=== PATIENT | male | born 1935 | race Caucasian/White ===

== ENCOUNTER 2018-08-10 09:36 | Outpatient (CLI) | payer MEDICARE | END 2018-08-10 23:59 | disposition home or self-care (01) | LOC: CFH 09:36 | PROVIDERS: ATTEND Internal Medicine Cardiovascular Disease | DX: I08.8 Other rheumatic multiple valve diseases (principal); E78.5 Hyperlipidemia, unspecified; R00.8 Other abnormalities of heart beat | CPT/HCPCS: 93306 ==

== ENCOUNTER 2019-05-26 11:08 | Emergency (ER) | payer MEDICARE ==
[~2019-05-26] VITALS: Ht 172.7 cm; Wt 76.2 kg
[2019-05-26 13:11] VITALS: BP 151/67
--- NOTE | 2019-05-26 13:19 | NUR ---
NURSING CENTER TUTOR: PT TO ROOM FROM ERIKA MIKE
--- NOTE | 2019-05-26 13:48 | NUR ---
LAB AT BEDSIDE. US AT BEDSIDE.
[2019-05-26 14:05] LABS: ALBUMIN 3.5 g/dL (3.4-5.0); ANION GAP 5 mmol/L (5-15); CALCIUM 8.7 mg/dL (8.5-10.1); CHLORIDE 100 mmol/L (98-107); CREATININE 0.97 mg/dL (0.7-1.3)
[2019-05-26 14:15] LABS: BASOPHILS # (AUTO) 0.04 x10^3/uL (0-0.1); BASOPHILS % (AUTO) 1 % (0-1); EOSINOPHILS % (AUTO) 4 % (1-7); LYMPHOCYTES # (AUTO) 1.67 x10^3/uL (1-3.4); LYMPHOCYTES % (AUTO) 30 % (22-44); MD NO; MEAN CORPUSCULAR HEMOGLOBIN 31.3 pg (27.5-34.5); MEAN CORPUSCULAR HGB CONC 33.2 g/dL (33.2-36.2); MEAN CORPUSCULAR VOLUME 94.3 fL (81-97); MEAN PLATELET VOLUME 8.4 fL (7.4-10.4); MONOCYTES # (AUTO) 0.54 x10^3/uL (0.2-0.8); MONOCYTES % (AUTO) 10 % (2-9); NEUTROPHILS # (AUTO) 3.22 x10^3/uL (1.8-6.8); NEUTROPHILS % (AUTO) 57 % (42-75); PLATELET COUNT 310 x10^3/uL (130-400); RED BLOOD COUNT 3.91 x10^6/uL (4.38-5.82); RED CELL DISTRIBUTION WIDTH 14.1 % (9.4-14.8)
--- NOTE | 2019-05-26 14:18 | NUR ---
ALL RESULTS ARE BACK AT THIS TIME. CHART UP FOR RECHECK.
--- NOTE | 2019-05-26 14:50 | NUR ---
MD AT BEDSIDE TO UPDATE PT ON POC.
== END 2019-05-26 15:07 | disposition home or self-care (01) ==
LOC: ED 14:18
DX: K40.91 Unilateral inguinal hernia, without obstruction or gangrene, recurrent (principal)
CPT/HCPCS: 36415; 76857; 80048; 82040; 83605; 85025; 99284

== ENCOUNTER → 2019-07-01 | Outpatient (CLI) | payer MEDICARE ==
[~2019-07-01] MED LIST: DOXA4TAB3 PO; FINA5TAB4 PO; ROSU5TAB PO
== END | disposition home or self-care (01) ==
LOC: STAR 10:38
PROVIDERS: ATTEND Surgery
DX: Z01.818 Encounter for other preprocedural examination (principal); K40.90 Unilateral inguinal hernia, without obstruction or gangrene, not specified as recurrent
CPT/HCPCS: 93005

== ENCOUNTER → 2019-10-06 | Outpatient (CLI) | payer MEDICARE ==
[~2019-10-06] MED LIST changes: +AMLO-150 PO; +IRON PO
== END | disposition home or self-care (01) ==
LOC: STAR 14:40
PROVIDERS: ATTEND Student in an Organized Health Care Education/Training Program
DX: Z01.818 Encounter for other preprocedural examination (principal)
CPT/HCPCS: 93005

== ENCOUNTER 2019-10-13 15:47 | Inpatient (IN) | payer MEDICARE ==
[~2019-10-13] VITALS: Ht 172.7 cm; Wt 70.6 kg
[2019-10-13] MEDS ORDERED: OXYC5TAB2 PO (16:12)
--- NOTE | 2019-10-13 16:16 | NUR ---
THIS IS AN 83 YO M W/ C/O N/V SINCE YESTERDAY. PT DENIES ABD PAIN/D/C. PT REPORTS HE WAS SEEN HERE YESTERDAY MORNING FOR INGUINAL HERNIA REPAIR. STARTED ON [place] WHICH HE HAS NOT TAKEN BEFORE. PT STATES HE HAS NOT BEEN ABLE TO HOLD ANY FOOD OR WATER DOWN. PT REPORTS EMESIS IS BLACK. PT RESTING ON GURNEY W/ CALL LIGHT IN REACH, VSS, NADN. FAMILY AT BEDSIDE. AWAITING ED EVAL.
[2019-10-13] MEDS ORDERED: PANTOPRAZOLE 80 MG in SODIUM CHLORIDE 0.9% 50 ML IVPB ONE (16:40)
--- NOTE | 2019-10-13 16:54 | NUR ---
PIV STARTED, LABS DRAWN.
[2019-10-13] MEDS ORDERED: SODIUM CHLORIDE FLUSH 10ML SYR IVF ONE (17:00)
[2019-10-13 17:07] LABS: BASOPHILS # (AUTO) 0.02 x10^3/uL (0-0.1); BASOPHILS % (AUTO) 0 % (0-1); EOSINOPHILS # (AUTO) 0.05 x10^3/uL (0-0.4); EOSINOPHILS % (AUTO) 1 % (1-7); LYMPHOCYTES # (AUTO) 1.01 x10^3/uL (1-3.4); LYMPHOCYTES % (AUTO) 10 % (22-44); MD NO; MEAN CORPUSCULAR HEMOGLOBIN 31.8 pg (27.5-34.5); MEAN CORPUSCULAR HGB CONC 33.7 g/dL (33.2-36.2); MEAN CORPUSCULAR VOLUME 94.4 fL (81-97); MEAN PLATELET VOLUME 7.9 fL (7.4-10.4); MONOCYTES # (AUTO) 0.64 x10^3/uL (0.2-0.8); MONOCYTES % (AUTO) 6 % (2-9); NEUTROPHILS # (AUTO) 8.82 x10^3/uL (1.8-6.8); NEUTROPHILS % (AUTO) 84 % (42-75); PLATELET COUNT 319 x10^3/uL (130-400); RED BLOOD COUNT 3.59 x10^6/uL (4.38-5.82); RED CELL DISTRIBUTION WIDTH 13.4 % (9.4-14.8)
[2019-10-13 17:13] LABS: INTERNATIONAL NORMALIZED RATIO 1.01 (0.93-1.1); PROTHROMBIN TIME 10.7 Seconds (9.6-11.5)
[2019-10-13 17:15] LABS: ALANINE AMINOTRANSFERASE 21 U/L (12-78); ALBUMIN 3.2 g/dL (3.4-5.0); ANION GAP 9 mmol/L (5-15); CALCIUM 8.8 mg/dL (8.5-10.1); CHLORIDE 89 mmol/L (98-107)
[2019-10-13 17:17] LABS: ALKALINE PHOSPHATASE 58 U/L (45-117); BILIRUBIN,TOTAL 0.8 mg/dL (0.2-1.0); CREATININE 1.04 mg/dL (0.7-1.3); TOTAL PROTEIN 7.5 g/dL (6.4-8.2)
--- NOTE | 2019-10-13 17:34 | NUR ---
PT RESTING ON [employer] W/ CALL LIGHT IN REACH, VSS, NADN. AWAITING RESULTS.
--- NOTE | 2019-10-13 17:34 | NUR ---
MED REC DONE.
--- NOTE | 2019-10-13 18:19 | NUR ---
IN ROOM AT BEDSIDE FOR RECHECK.
--- NOTE | 2019-10-13 18:32 | NUR ---
PT RESTING ON GURNEY W/ CALL LIGHT IN REACH. RESP EVEN AND UNLABORED, NADN. AWAITING ADMIT.
--- NOTE | 2019-10-13 18:57 | NUR ---
REPORT FROM GERARD ASSUMING CARE OF PT AT THIS TIME
[2019-10-13] MEDS ORDERED: PANTOPRAZOLE 80 MG in SODIUM CHLORIDE 0.9% 100 ML IV ONE (19:00)
--- NOTE | 2019-10-13 19:52 | NUR ---
PT RESTING ON [employer] WATCHING TV,
[2019-10-13] MEDS ORDERED: BISACODYL 10 MG SUPP PR PRN (20:00)
[2019-10-13] MEDS ORDERED: ONDANSETRON 2MG/ML, 2ML IVPush PRN (20:00)
[2019-10-13] MEDS ORDERED: ACETAMINOPHEN 325 MG TABLET PO PRN (20:00)
[2019-10-13] MEDS ORDERED: ENALAPRILAT 1.25 MG/ML, 2ML IVPush PRN (20:00)
[2019-10-13] MEDS ORDERED: hydrALAzine 20 MG/ML, 1ML IVPush PRN (20:00)
[2019-10-13] MEDS ORDERED: PANTOPRAZOLE 80 MG in SODIUM CHLORIDE 0.9% 100 ML IV SCH (20:00)
[2019-10-13] MEDS ORDERED: ONDANSETRON ODT 4 MG PO PRN (20:00)
--- NOTE | 2019-10-13 20:29 | NUR ---
PT PROVIDED WITH WATER AND [employer] REQUESTED
--- NOTE | 2019-10-13 21:39 | NUR ---
TP RN: [employer] CALLED FOR A ROOM DUE TO LONG DELAY TO RECIEVE ONE.
[2019-10-13] MEDS: SODIUM CHLORIDE 0.9% 1,000 ML IV SCH (22:08)
--- NOTE | 2019-10-13 22:08 | NUR ---
PT UP TO CHAIR NO ASSIST REQUIRED. PT DENIES FURTHER NEEDS AT THIS TIME, IVF STARTED, PROTONIX ALSO INFUSING WITHOUT DIFFICULTY. AWAITING ROOM ASSIGNMENT.
[2019-10-13 23:19] VITALS: BP 157/70
[2019-10-13] MEDS: SENNA/DOCUSATE TABLET PO SCH (23:27)
[2019-10-13] MEDS: POLYETHYLENE GLYCOL 17 GM PACKET PO SCH (23:27)
[2019-10-13 23:28] VITALS: BP 157/70
[2019-10-14 00:19] LABS: ANION GAP 8 mmol/L (5-15); CALCIUM 8.9 mg/dL (8.5-10.1); CHLORIDE 91 mmol/L (98-107); CREATININE 0.93 mg/dL (0.7-1.3)
[2019-10-14] MEDS ORDERED: FINASTERIDE 5 MG TABLET PO SCH ×2 (00:30→09:00)
[2019-10-14 02:00] VITALS: BP 153/80
[2019-10-14 06:45] LABS: BASOPHILS # (AUTO) 0.03 x10^3/uL (0-0.1); BASOPHILS % (AUTO) 0 % (0-1); EOSINOPHILS # (AUTO) 0.12 x10^3/uL (0-0.4); EOSINOPHILS % (AUTO) 2 % (1-7); LYMPHOCYTES # (AUTO) 1.51 x10^3/uL (1-3.4); LYMPHOCYTES % (AUTO) 19 % (22-44); MD NO; MEAN CORPUSCULAR HEMOGLOBIN 31.7 pg (27.5-34.5); MEAN CORPUSCULAR HGB CONC 33.7 g/dL (33.2-36.2); MEAN CORPUSCULAR VOLUME 94.1 fL (81-97); MEAN PLATELET VOLUME 8.2 fL (7.4-10.4); MONOCYTES % (AUTO) 8 % (2-9); NEUTROPHILS % (AUTO) 72 % (42-75); PLATELET COUNT 309 x10^3/uL (130-400); RED BLOOD COUNT 3.54 x10^6/uL (4.38-5.82); RED CELL DISTRIBUTION WIDTH 13.7 % (9.4-14.8)
[2019-10-14 06:54] LABS: ALBUMIN 3.1 g/dL (3.4-5.0); ANION GAP 7 mmol/L (5-15); CALCIUM 8.8 mg/dL (8.5-10.1); CHLORIDE 96 mmol/L (98-107)
[2019-10-14 06:57] LABS: ALANINE AMINOTRANSFERASE 22 U/L (12-78); ALKALINE PHOSPHATASE 56 U/L (45-117); CREATININE 0.89 mg/dL (0.7-1.3); TOTAL PROTEIN 7.1 g/dL (6.4-8.2)
[2019-10-14 07:18] VITALS: BP 162/73
[2019-10-14] MEDS ORDERED: AMLODIPINE 5 MG TABLET PO SCH (09:00)
[2019-10-14] MEDS ORDERED: DOXAZOSIN 2MG TABLET PO SCH (09:00)
[2019-10-14] MEDS: SENNA/DOCUSATE TABLET PO SCH (09:01)
[2019-10-14] MEDS: POLYETHYLENE GLYCOL 17 GM PACKET PO SCH (09:02)
[2019-10-14] MEDS: SODIUM CHLORIDE 0.9% 1,000 ML IV SCH ×2 (09:02→16:05)
[2019-10-14] MEDS ORDERED: PROPOFOL 50 ML ONE (09:15)
[2019-10-14] MEDS ORDERED: FENTANYL PF 100 MCG/2ML IV PRN (09:30)
[2019-10-14] MEDS ORDERED: CHLORHEXIDINE 15 ML UDC ONE (09:47)
[2019-10-14] MEDS: SUCRALFATE 1 GM/10 ML UDC PO SCH ×2 (12:23→17:26)
[2019-10-14 12:56] VITALS: BP 160/71
[2019-10-14] MEDS ORDERED: OMEP-110 PO ×2 (15:30)
[2019-10-14] MEDS ORDERED: SUCR1ORA14 PO (15:30)
[2019-10-14] MEDS ORDERED: OMEPRAZOLE 20 MG CAPSULE.DR PO SCH (16:00)
== END 2019-10-14 18:08 | disposition home or self-care (01) | DRG 378 ==
LOC: ED 17:59 → EDIP 18:34 → 4EST 23:15
PROVIDERS: ADMIT Family Medicine; ATTEND Family Medicine
PROC: 0DB68ZX Excision of Stomach, Via Natural or Artificial Opening Endoscopic, Diagnostic (ICD-10-PCS; 2019-10-14)
PROC: 0DB58ZX Excision of Esophagus, Via Natural or Artificial Opening Endoscopic, Diagnostic (ICD-10-PCS; principal; 2019-10-14 16:00)
DX: K29.71 Gastritis, unspecified, with bleeding (principal); D62 Acute posthemorrhagic anemia; E87.1 Hypo-osmolality and hyponatremia; E78.5 Hyperlipidemia, unspecified; I10 Essential (primary) hypertension; I25.10 Atherosclerotic heart disease of native coronary artery without angina pectoris; I25.5 Ischemic cardiomyopathy; K40.90 Unilateral inguinal hernia, without obstruction or gangrene, not specified as recurrent; N40.0 Benign prostatic hyperplasia without lower urinary tract symptoms; M81.0 Age-related osteoporosis without current pathological fracture; K22.2 Esophageal obstruction; K20.9 Esophagitis, unspecified
CPT/HCPCS: 36415; 80048; 80053; 83690; 85014; 85018; 85025; 85610; 85730; 88305; 96374; 96375; 99285; G0378; J0690; J2250; J2405; J2704; J3010; C1781; C9113; J0330; J7030; J7120

== ENCOUNTER 2019-11-08 14:41 | Emergency (ER) | payer MEDICARE ==
[~2019-11-08] VITALS: Ht 172.7 cm; Wt 71.5 kg
[~2019-11-08 14:41] MED LIST changes: +OMEP-110 PO; +OXYC5TAB2 PO; +SUCR1ORA14 PO
--- NOTE | 2019-11-08 16:55 | NUR ---
Bruno danielson in [facility] - 11/08/19 at 1658 by [email or web address]
[2019-11-08] MEDS ORDERED: SODIUM CHLORIDE FLUSH 10ML SYR IVF ONE (17:00)
[2019-11-08 17:13] LABS: BASOPHILS # (AUTO) 0.03 x10^3/uL (0-0.1); BASOPHILS % (AUTO) 0 % (0-1); EOSINOPHILS # (AUTO) 0.05 x10^3/uL (0-0.4); EOSINOPHILS % (AUTO) 0 % (1-7); LYMPHOCYTES # (AUTO) 1.28 x10^3/uL (1-3.4); LYMPHOCYTES % (AUTO) 11 % (22-44); MD NO; MEAN CORPUSCULAR HEMOGLOBIN 31.6 pg (27.5-34.5); MEAN CORPUSCULAR HGB CONC 33.8 g/dL (33.2-36.2); MEAN CORPUSCULAR VOLUME 93.5 fL (81-97); MEAN PLATELET VOLUME 8.4 fL (7.4-10.4); MONOCYTES # (AUTO) 0.72 x10^3/uL (0.2-0.8); MONOCYTES % (AUTO) 6 % (2-9); NEUTROPHILS % (AUTO) 83 % (42-75); PLATELET COUNT 364 x10^3/uL (130-400); RED BLOOD COUNT 3.59 x10^6/uL (4.38-5.82); RED CELL DISTRIBUTION WIDTH 13.3 % (9.4-14.8)
[2019-11-08] MEDS ORDERED: ROSU10TA2 PO (18:05)
--- NOTE | 2019-11-08 18:09 | NUR ---
lab at bedside at this time.
[2019-11-08] MEDS ORDERED: SODIUM CHLORIDE 0.9% 1,000ML IVBOLUS ONE (18:30)
[2019-11-08] MEDS ORDERED: AMPICILLIN/SULBACTAM 3 GM in SODIUM CHLORIDE 0.9% 100 ML IV ONE (18:30)
--- NOTE | 2019-11-08 18:41 | NUR ---
ABX AND NS INFUSING AT THIS TIME AFTER BC X 2. PT TOLERATED WELL.
[2019-11-08 18:43] LABS: ALBUMIN 3.2 g/dL (3.4-5.0); ANION GAP 10 mmol/L (5-15); CALCIUM 8.8 mg/dL (8.5-10.1); CHLORIDE 97 mmol/L (98-107)
[2019-11-08 18:44] LABS: CREATININE 0.99 mg/dL (0.7-1.3)
--- NOTE | 2019-11-08 19:00 | NUR ---
report given to gino mckay.
--- NOTE | 2019-11-08 19:00 | NUR ---
BEDSIDE REPORT FROM THEODORE LUZ. PT CARE TRANSFERRED AT THIS TIME. FIRST PT CONTACT: PT RESTING IN [facility], APPEARS COMFORTABLE, STATES HE "CAME IN BECAUSE MY NECK IS SWOLLEN AND I CANT EAT OR DRINK. I HAVENT DRANK WATER IN TWO DAYS!" PT NAD, VSS, FLUIDS AND ABX RUNNING. GROSS NEURO INTACT. WCTM.
[2019-11-08] MEDS ORDERED: OMNIPAQUE 350 MG/ML, 100ML BOTTLE ONE (19:21)
--- NOTE | 2019-11-08 19:32 | NUR ---
PRECEPTOR RN: PT AMBULATORY TO RESTROOM WITH A STEADY GAIT, BACK TO BED WITHOUT DIFFICULTY. PT IN NO DISTRESS, MAINTAINING AIRWAY.
[2019-11-08] MEDS ORDERED: LIDOCAINE-MPF 1%, 5ML ONE (19:35)
[2019-11-08] MEDS ORDERED: DEXAMETHASONE 4 MG/ML, 1ML IVPush ONE (20:00)
[2019-11-08] MEDS ORDERED: DEXAMETHASONE 4 MG/ML, 5ML ONE (20:04)
--- NOTE | 2019-11-08 20:22 | NUR ---
PT RESTING IN GURNEY, CONDITION UNCHANGED, NAD, GIVEN WATER AND DRINKING SMOOTHLY, OCCASIONALLY COUGHING. WCTM.
[2019-11-08 21:22] VITALS: BP 150/66
--- NOTE | 2019-11-08 21:23 | NUR ---
PT RESTING IN [facility], DAUGHTER UPDATED ON CARE PLAN, PT NAD, VSS, CONDITION UNCHANGED, PT TO BE DC'D. WCTM.
--- NOTE | 2019-11-08 22:00 | NUR ---
Patient given discharge instructions and they have confirmed that they understand the instructions. Patient ambulatory with steady gait. PT DENIES ADDITIONAL QUESTIONS AT THIS TIME. NAD. VSS. ALL BELONGINGS WITH PT AT TIME OF DC.
== END 2019-11-08 22:04 | disposition home or self-care (01) ==
LOC: ED 18:51
DX: J36 Peritonsillar abscess (principal); R22.9 Localized swelling, mass and lump, unspecified; I10 Essential (primary) hypertension
CPT/HCPCS: 36415; 42700; 70491; 80048; 82040; 85025; 87040; 96365; 96375; 99285; J0295; J1100; J7030; Q9967